=== PATIENT | male | born 1995 | race Caucasian/White ===

== ENCOUNTER 2022-01-16 15:11 | Outpatient (CLI) | payer OTHER, SELFPAY ==
--- NOTE | ~2022-01-16 | XR_ITS ---
XR shoulder RT min 2V DATE: 01/16/2022 15:41 INDICATION: Right anterior shoulder pain with movement. No known injury. TECHNIQUE: 4 views COMPARISON: None FINDINGS: No fracture or dislocation, periosteal reaction or bone destruction or abnormal soft tissue calcification. Normal alignment at the acromioclavicular and glenohumeral joints. IMPRESSION: Negative Reviewed, dictated and finalized at location B. IMPRESSION: Negative
== END 2022-01-16 15:12 | disposition home or self-care (01) ==
LOC: CHSIMG 15:17
PROVIDERS: PCP Internal Medicine; Visit Provider Internal Medicine
DX: M25.511 Pain in right shoulder (principal)
CPT/HCPCS: 73030